=== PATIENT | female | born 1985 | race Two or more races ===

== ENCOUNTER 2022-10-16 22:20 | Emergency (ER) | payer MEDICARE, MEDICAID ==
[~2022-10-16] VITALS: Ht 162.6 cm; Wt 72.7 kg
[2022-10-16] MEDS ORDERED: KETOROLAC TROMETH 60MG/2ML VIAL IM ONE (22:45)
[2022-10-16 23:14] LABS: Basophils # (auto) 0 10 ^3/uL (0-0.2); Basophils % (auto) 0.2 % (0.0-2.0); Eosinophils # (auto) 0 10 ^3/uL (0-0.8); Hematocrit 43.1 % (36.0-46.0); Hemoglobin 14.9 g/dL (12.2-16.2); Lymphocytes # (auto) 1.9 10 ^3/uL (0.4-5.4); Lymphocytes % (auto) 10.2 % (10.0-50.0); Mean Corpuscular Hemoglobin 32.6 pg (28.0-32.0); Mean Corpuscular Hgb Conc. 34.7 g/dL (32.0-36.0); Monocytes # (auto) 1.3 10 ^3/uL (0-1.3); Monocytes % (auto) 6.8 % (0.0-12.0); Neutrophils # (auto) 15.4 10 ^3/uL (1.6-8.6); Neutrophils % (auto) 82.8 % (37.0-80.0); Red Blood Cells 4.59 10^6/uL (4.0-5.20); Red Cell Distribution Width 14.1 % (11.8-14.3); White Blood Cell 18.6 10^3/uL (4.4-10.8)
[2022-10-16 23:26] LABS: Albumin 3.9 g/dL (3.4-5.0); Calcium 9.1 mg/dL (8.5-10.1)
[2022-10-16 23:29] LABS: BUN/Creatinine Ratio 20.7 (10.0-20.0); Bilirubin, Total 0.3 mg/dL (0.2-1.0); Total Protein 8.1 g/dL (6.4-8.2)
[2022-10-16 23:33] LABS: Potassium 2.9 mmol/L (3.5-5.1)
[2022-10-16] MEDS ORDERED: POTASSIUM EFFERVESENT TAB 25 MEQ PO ONE (23:45)
[2022-10-17] MEDS: POTASSIUM CHL 20MEQ/100ML 100 ML IV SCH ×2 (00:57→05:15)
[2022-10-17] MEDS ORDERED: MAX35OO TOP (01:02)
[2022-10-17] MEDS ORDERED: MORPHINE SULFATE 4 MG/ML SYR/VIAL IV ONE (02:00)
[2022-10-17 02:30] VITALS: PULSE 70; RESP 95; O2SAT 95
[2022-10-17 06:47] LABS: Calcium 8.3 mg/dL (8.5-10.1)
[2022-10-17] MEDS ORDERED: PRED20TA2 PO (06:52)
[2022-10-17 07:02] LABS: Potassium 2.9 mmol/L (3.5-5.1)
[2022-10-17] MEDS ORDERED: POTASSIUM CHL 20MEQ/100ML 100 ML IV ONE (07:15)
[2022-10-17] MEDS ORDERED: MAGNESIUM SULFATE 1GM/100ML 100 ML IV ONE (07:15)
[2022-10-17 07:50] VITALS: TEMP 98
[2022-10-17] MEDS ORDERED: MORPHINE SULFATE INJ 2 MG/ml SYRG IV ONE (08:15)
[2022-10-17 08:49] VITALS: BP 112/69
[2022-10-17 10:17] VITALS: PULSE 70; RESP 16; O2SAT 94
[2022-10-17 10:20] VITALS: PULSE 70; RESP 14; O2SAT 95
== END 2022-10-17 11:42 | disposition home or self-care (01) ==
LOC: ER 22:23
DX: S00.86XA Insect bite (nonvenomous) of other part of head, initial encounter (principal); L08.9 Local infection of the skin and subcutaneous tissue, unspecified; E87.6 Hypokalemia; I50.9 Heart failure, unspecified; Z88.0 Allergy status to penicillin; Z88.1 Allergy status to other antibiotic agents; Z88.2 Allergy status to sulfonamides; Z88.8 Allergy status to other drugs, medicaments and biological substances; Z98.890 Other specified postprocedural states; W57.XXXA Bitten or stung by nonvenomous insect and other nonvenomous arthropods, initial encounter; Y93.89 Activity, other specified; Y92.89 Other specified places as the place of occurrence of the external cause; Y99.8 Other external cause status
CPT/HCPCS: 36415; 80048; 80053; 85025; 96365; 96366; 96367; 96372; 96375; 96376; 99285; J1885; J2270; J3475; J3480